=== PATIENT | female | born 1975 | race African-American/Black ===

== ENCOUNTER 2016-09-08 14:27 | Inpatient (IN) | payer OTHER ==
[~2016-09-08] VITALS: Ht 160 cm; Wt 162.4 kg
[~2016-09-08 14:27] MED LIST: ADVAIR 250/501 DISK IH; AZITHROMYCIN250 MG PO; CLONAZEPAM0.5 MG PO; DESYREL100 MG PO; DOXEPIN HCL25 MG PO; EFFEXOR XR150 MG PO; FERROUS SULFAT325 MG PO; GLUCOPHAGE XR750 MG PO; INDERAL20 MG PO; INVOKANA300 MG PO; KLONOPIN1 MG PO; KLOR-CON M1010 MEQ PO; LATUDA40 MG PO; LATUDA80 MG PO; LEVOTHYROXINE50 MCG PO; LISINOPRIL-HCT1 EAC3 PO; METFORMIN HCL500 M1 PO; METOPROLOL SUCC25 MG PO; NOVOLOG MI100 UNIT/4 SC; PRAZOSIN HCL1 MG PO; PRINZIDE 20-121 EACH PO; PROAIR HFA8.5 GM IH; ROZEREM8 MG PO; SINGULAIR10 MG PO; ZYRTEC10 M2 PO
[2016-09-08 15:21] LABS: HEMATOCRIT 41.3 % (36.0-46.0); MCH 27.8 PG (29.0-34.0); MCHC 32.2 G/DL (30.0-36.0); MCV 86.2 FL (83-99); MEAN PLAT.VOLUME 9.3 uM^3 (9.5-12.4); PLATELET COUNT 421 K/uL (156-360); RBC DIS.WIDTH-CV 13.6 % (11.8-14.6); RBC DIS.WIDTH-SD 42.5 % (39-53); RED BLOOD COUNT 4.79 M/uL (3.80-5.20); WHITE BLOOD COUNT 12.3 K/uL (4.1-10.2)
[2016-09-08 15:29] LABS: CHLORIDE 104 mEq/L (99-109); POTASSIUM 3.8 mEq/L (3.7-5.4); SODIUM 140 mEq/L (136-147)
[2016-09-08 15:30] LABS: GLUCOSE 94 mg/dL (70-99)
[2016-09-08 15:32] LABS: ANION GAP 10 MEQ/L (2-14)
[2016-09-08 15:34] LABS: GFR ESTIMATE (CALCULATED) 54 mL/min/; SERUM ETHYL ALCOHOL < 10 mg/dL
[2016-09-08 15:35] LABS: UREA NITROGEN (BUN) 10 mg/dL (9-23)
[2016-09-08 19:19] LABS: SALICYLATE < 5.0 MG/DL (15-30)
[2016-09-08 20:09] LABS: INTERNAL CONTROL VALID? YES
[2016-09-08 20:10] LABS: ADD MIUA? YES; BILIRUBIN NEGATIVE; BLOOD NEGATIVE; COLOR YELLOW ((YELLOW)); GLUCOSE (STRIP) >=500; KETONES 20; LEUKOCYTES NEGATIVE; NITRITE NEGATIVE; PROTEIN (STRIP) 100; SPECIFIC GRAVITY 1.035 (1.000-1.030); UROBILINOGEN 0.2 MG/DL (0.2-1.0)
[2016-09-08 20:15] LABS: BACTERIA NONE SEEN /HPF; EPITHELIAL CELLS RARE /HPF; MUCUS TRACE /LPF; RED BLOOD CELLS 0-5 /HPF (0-5); UCUL ADDED? NO; WHITE BLOOD CELLS 0-5 /HPF (0-5)
[2016-09-08 20:26] LABS: COCAINE NEGATIVE (150 ng/mL); PHENCYCLIDINE NEGATIVE (25 ng/mL); THC CANNABINOIDS NEGATIVE (50 ng/mL)
[2016-09-08 20:27] LABS: ADD MEDTOX COMMENT Y; AMPHETAMINE NEGATIVE (500 ng/mL); BARBITURATES NEGATIVE (200 ng/mL); BENZODIAZEPINES PRESUMPTIVE POSITIVE (150 ng/mL); INTERNAL CONTROLS VALID? YES; METHADONE NEGATIVE (200 ng/mL); METHAMPHETAMINE NEGATIVE (500 ng/mL); OPIATES (MORPHINE) NEGATIVE (100 ng/mL); OXYCODONE NEGATIVE (100 ng/mL); PROPOXYPHENE NEGATIVE (300 ng/mL); TRICYCLIC ANTIDEPRESSANTS NEGATIVE (300 ng/mL)
[2016-09-08 21:01] LABS: BENZODIAZEPINES, URINE SCREEN POSITIVE (200 ng/mL)
[2016-09-08] MEDS ORDERED: TOPROL XL100 MG PO (21:22)
[2016-09-08] MEDS ORDERED: DESYREL 150 MG150 MG PO (21:24)
[2016-09-08] MEDS ORDERED: ADVAIR 500/501 DISK IH (21:28)
[2016-09-08] MEDS ORDERED: ESZOPICLONE3 MG PO (21:32)
[2016-09-08] MEDS ORDERED: LORAZEPAM1 MG PO (21:32)
[2016-09-08] MEDS ORDERED: SPIRONOLACTONE25 MG PO (21:33)
[2016-09-08] MEDS ORDERED: VALSARTAN160 MG PO (21:34)
[2016-09-08] MEDS ORDERED: TRULICITY1.5 MG/0.5 SC (21:34)
[2016-09-08] MEDS ORDERED: VALSARTAN320 MG PO (21:35)
[2016-09-08] MEDS ORDERED: WELLBUTRIN SR200 MG PO (21:36)
[2016-09-08] MEDS ORDERED: PANTOPRAZOLE SO40 MG PO (21:36)
[2016-09-08] MEDS ORDERED: FLONASE ALLERG9.9 ML BOTH NARES (21:37)
[2016-09-08] MEDS ORDERED: HUMALOG100 UNIT/1 SC (21:46)
[2016-09-08] MEDS ORDERED: AZITHROMYCIN500 M1 PO (21:46)
[2016-09-08] MEDS ORDERED: INSULIN PUMP SCCONT (21:56)
[2016-09-08 22:37] VITALS: BP 188/113
[2016-09-08 22:41] VITALS: BP 188/116
[2016-09-09 00:54] VITALS: BP 202/99
[2016-09-09 06:16] LABS: POINT-OF-CARE METER ID UU13113830
[2016-09-09 07:49] VITALS: BP 182/86
[2016-09-09 11:57] LABS: POINT-OF-CARE METER ID UU13113830; POINT-OF-CARE USER ID HRSENV50
[2016-09-09 12:00] VITALS: BP 143/72
[2016-09-09 15:24] VITALS: BP 210/108
[2016-09-09 16:50] LABS: POINT-OF-CARE METER ID UU13113830
[2016-09-09 21:53] LABS: POINT-OF-CARE METER ID UU13113830
[2016-09-10 06:09] LABS: POINT-OF-CARE METER ID UU13113830; POINT-OF-CARE USER ID BHSSMG
[2016-09-10 07:37] VITALS: BP 197/104
[2016-09-10 10:52] VITALS: BP 200/112
[2016-09-10 12:00] LABS: POINT-OF-CARE METER ID UU13113830; POINT-OF-CARE USER ID BHSLRM
[2016-09-10 15:38] VITALS: BP 192/82
[2016-09-10 16:46] LABS: POINT-OF-CARE METER ID UU13113830; POINT-OF-CARE USER ID BHSMEW
[2016-09-10 21:27] LABS: POINT-OF-CARE METER ID UU13113830; POINT-OF-CARE USER ID BHSMEW
[2016-09-11 05:59] LABS: POINT-OF-CARE METER ID UU13113830
[2016-09-11 08:21] VITALS: BP 111/55
[2016-09-11 11:09] LABS: POINT-OF-CARE METER ID UU13113830
[2016-09-11 15:46] VITALS: BP 174/87
[2016-09-11 17:24] LABS: POINT-OF-CARE METER ID UU13113830
[2016-09-11 21:01] LABS: POINT-OF-CARE METER ID UU13113830; POINT-OF-CARE USER ID BHSMEW
[2016-09-12 06:21] LABS: POINT-OF-CARE METER ID UU13113830
[2016-09-12 07:34] VITALS: BP 172/81
[2016-09-12 11:47] LABS: POINT-OF-CARE METER ID UU13113830; POINT-OF-CARE USER ID BHSMLB
[2016-09-12 11:50] VITALS: BP 190/112
[2016-09-12 15:31] VITALS: BP 180/93
[2016-09-12 16:48] LABS: POINT-OF-CARE METER ID UU13113830; POINT-OF-CARE USER ID BHSSMG
[2016-09-12 21:23] LABS: POINT-OF-CARE METER ID UU13113830; POINT-OF-CARE USER ID BHSSMG
[2016-09-13 07:28] LABS: POINT-OF-CARE METER ID UU13113830
[2016-09-13 08:02] VITALS: BP 163/81
[2016-09-13 12:05] LABS: POINT-OF-CARE METER ID UU13113830; POINT-OF-CARE USER ID HRSENV50
[2016-09-13 16:26] VITALS: BP 226/114
[2016-09-13 16:39] LABS: POINT-OF-CARE METER ID UU13113830
[2016-09-13 21:07] LABS: POINT-OF-CARE METER ID UU13113830
[2016-09-14 06:08] LABS: POINT-OF-CARE METER ID UU13113830
[2016-09-14 07:40] VITALS: BP 172/87
[2016-09-14 11:59] LABS: POINT-OF-CARE METER ID UU13113830
[2016-09-14 15:24] VITALS: BP 189/121
[2016-09-14 17:09] LABS: POINT-OF-CARE METER ID UU13113830; POINT-OF-CARE USER ID BHSSMG
[2016-09-14 20:53] LABS: POINT-OF-CARE METER ID UU13113830; POINT-OF-CARE USER ID BHSSMG
[2016-09-14 23:30] VITALS: BP 181/73
[2016-09-15 06:18] LABS: POINT-OF-CARE METER ID UU13113830
[2016-09-15 08:00] VITALS: BP 178/77
[2016-09-15 12:12] LABS: POINT-OF-CARE METER ID UU13113830
[2016-09-15 16:53] LABS: POINT-OF-CARE METER ID UU13113830; POINT-OF-CARE USER ID BHSMEW
[2016-09-15 20:46] LABS: POINT-OF-CARE METER ID UU13113830
[2016-09-16 06:38] LABS: POINT-OF-CARE METER ID UU13113830
[2016-09-16 07:54] VITALS: BP 175/80
[2016-09-16] MEDS ORDERED: CLONIDINE HCL0.2 MG PO (10:03)
[2016-09-16] MEDS ORDERED: AMLODIPINE BESYL5 MG PO (10:03)
[2016-09-16] MEDS ORDERED: CITALOPRAM HBR10 MG PO (10:03)
[2016-09-16] MEDS ORDERED: APRESOLINE25 MG PO (10:03)
[2016-09-16] MEDS ORDERED: ARIPIPRAZOLE15 MG PO (10:03)
[2016-09-16 12:08] LABS: POINT-OF-CARE METER ID UU13113830
== END 2016-09-16 12:32 | disposition home or self-care (01) | DRG 885 ==
LOC: EME 14:27 → EDOF 20:56 → 1WEST 20:56
PROVIDERS: Emergency Medicine; Psychiatry & Neurology Psychiatry
DX: F33.2 Major depressive disorder, recurrent severe without psychotic features (principal); R45.851 Suicidal ideations; F60.3 Borderline personality disorder; E11.9 Type 2 diabetes mellitus without complications; I10 Essential (primary) hypertension; E03.9 Hypothyroidism, unspecified; J45.909 Unspecified asthma, uncomplicated; E66.9 Obesity, unspecified; Z68.44 Body mass index [BMI] 60.0-69.9, adult; Z91.5 Personal history of self-harm; Z79.84 Long term (current) use of oral hypoglycemic drugs; Z59.9 Problem related to housing and economic circumstances, unspecified
CPT/HCPCS: 80048; 81003; 82948; 84703; 84999; 85027; 90839; 93005; 94640 76; 97150 GO; 97165 GO; 99281; 99285; G0480; J1815; Q0177

== ENCOUNTER 2017-04-15 09:55 | Emergency (ER) | payer OTHER ==
[~2017-04-15] VITALS: Ht 160 cm; Wt 169.9 kg
[~2017-04-15 09:55] MED LIST changes: +ADVAIR 500/501 DISK IH; +AMLODIPINE BESYL5 MG PO; +APRESOLINE25 MG PO; +ARIPIPRAZOLE15 MG PO; +AZITHROMYCIN500 M1 PO; +CITALOPRAM HBR10 MG PO; +CLONIDINE HCL0.2 MG PO; +DESYREL 150 MG150 MG PO; +ESZOPICLONE3 MG PO; +FLONASE ALLERG9.9 ML BOTH NARES; +HUMALOG100 UNIT/1 SC; +INSULIN PUMP SCCONT; +LORAZEPAM1 MG PO; +PANTOPRAZOLE SO40 MG PO; +SPIRONOLACTONE25 MG PO; +TOPROL XL100 MG PO; +TRULICITY1.5 MG/0.5 SC; +VALSARTAN160 MG PO; +VALSARTAN320 MG PO; +WELLBUTRIN SR200 MG PO
[2017-04-15 12:34] LABS: BASOPHIL (%) 0.4 % (0-1); BASOPHIL COUNT 0.1 K/uL (0-0.1); EOSINOPHIL (%) 3.2 % (0-5); EOSINOPHIL COUNT 0.4 K/uL (0-0.3); HEMATOCRIT 40.5 % (36.0-46.0); HEMOGLOBIN 13.2 G/DL (11.9-15.5); IMMATURE GRANULOCYTE (%) 0.2 % (0.0-0.7); LYMPHOCYTE (%) 20.9 % (15-42); LYMPHOCYTE COUNT 2.5 K/uL (1.0-2.8); MCH 29.2 PG (29.0-34.0); MCHC 32.6 G/DL (30.0-36.0); MCV 89.6 FL (83-99); MONOCYTE (%) 3.8 % (3-12); MONOCYTE COUNT 0.5 K/uL (0-0.8); NEUTROPHIL (%) 71.5 % (45-76); NEUTROPHIL COUNT 8.6 K/uL (1.8-6.4); PLATELET COUNT 350 K/uL (156-360); RBC DIS.WIDTH-CV 13.2 % (11.8-14.6); RBC DIS.WIDTH-SD 42.6 % (39-53); RED BLOOD COUNT 4.52 M/uL (3.80-5.20); WHITE BLOOD COUNT 12.1 K/uL (4.1-10.2)
[2017-04-15 12:41] LABS: CHLORIDE 104 mEq/L (99-109); POTASSIUM 4.1 mEq/L (3.7-5.4); SODIUM 139 mEq/L (136-147)
[2017-04-15 12:43] LABS: GLUCOSE 110 mg/dL (70-99)
[2017-04-15 12:47] LABS: CREATININE 1.3 mg/dL (0.6-1.3); GFR ESTIMATE (CALCULATED) 59 mL/min/
[2017-04-15 12:48] LABS: UREA NITROGEN (BUN) 14 mg/dL (9-23)
[2017-04-15 13:08] VITALS: BP 169/94
== END 2017-04-15 14:32 | disposition home or self-care (01) ==
LOC: EME 09:55
DX: I10 Essential (primary) hypertension (principal); E03.9 Hypothyroidism, unspecified; J45.909 Unspecified asthma, uncomplicated; Z79.84 Long term (current) use of oral hypoglycemic drugs; E66.01 Morbid (severe) obesity due to excess calories; Z68.44 Body mass index [BMI] 60.0-69.9, adult
CPT/HCPCS: 80048; 85025

== ENCOUNTER 2017-10-15 09:17 | Emergency (ER) | payer OTHER ==
[~2017-10-15] VITALS: Ht 160 cm; Wt 169.8 kg
[2017-10-15 09:57] LABS: HEMATOCRIT 36.3 % (36.0-46.0); HEMOGLOBIN 11.9 G/DL (11.9-15.5); MCH 28.3 PG (29.0-34.0); MCHC 32.8 G/DL (30.0-36.0); MCV 86.4 FL (83-99); PLATELET COUNT 347 K/uL (156-360); RBC DIS.WIDTH-CV 13.2 % (11.8-14.6); RBC DIS.WIDTH-SD 41.1 % (39-53); WHITE BLOOD COUNT 9.5 K/uL (4.1-10.2)
[2017-10-15 10:10] LABS: CHLORIDE 104 mEq/L (99-109); POTASSIUM 3.3 mEq/L (3.7-5.4); SODIUM 141 mEq/L (136-147)
[2017-10-15 10:12] LABS: GLUCOSE 182 mg/dL (70-99)
[2017-10-15 10:16] LABS: CREATININE 1.2 mg/dL (0.6-1.3); GFR ESTIMATE (CALCULATED) > 59 mL/min/; UREA NITROGEN (BUN) 10 mg/dL (9-23)
[2017-10-15 10:18] LABS: TROP-I INTERPRETATION NEGATIVE; TROPONIN-I < 0.01 ng/mL (0.0-0.30)
[2017-10-15 13:32] LABS: BILIRUBIN NEGATIVE; BLOOD LARGE; COLOR STRAW ((YELLOW)); GLUCOSE (STRIP) >=500; KETONES NEGATIVE; LEUKOCYTES NEGATIVE; NITRITE NEGATIVE; PROTEIN (STRIP) 30; SPECIFIC GRAVITY 1.023 (1.000-1.030); UROBILINOGEN 0.2 MG/DL (0.2-1.0)
[2017-10-15 13:33] LABS: APPEARANCE SL.HAZY ((CLEAR))
[2017-10-15 13:38] LABS: TROP-I INTERPRETATION NEGATIVE; TROPONIN-I < 0.01 ng/mL (0.0-0.30)
[2017-10-15 13:56] LABS: BACTERIA RARE /HPF; EPITHELIAL CELLS RARE /HPF; MUCUS NONE SEEN /LPF; RED BLOOD CELLS TNTC /HPF (0-5); UCUL ADDED? YES; WHITE BLOOD CELLS 0-5 /HPF (0-5)
[2017-10-15 17:12] VITALS: BP 157/97
== END 2017-10-15 17:13 | disposition home or self-care (01) ==
LOC: EME 09:17 → ENRESERV 16:56 → CANRESERV 16:56 → EME 17:10 → EDOF 17:10
PROVIDERS: Nurse Practitioner Family
DX: R07.89 Other chest pain (principal); I10 Essential (primary) hypertension; E11.9 Type 2 diabetes mellitus without complications; Z98.890 Other specified postprocedural states; J45.909 Unspecified asthma, uncomplicated; E03.9 Hypothyroidism, unspecified; F32.9 Major depressive disorder, single episode, unspecified; F31.9 Bipolar disorder, unspecified; F41.9 Anxiety disorder, unspecified; Z79.84 Long term (current) use of oral hypoglycemic drugs
CPT/HCPCS: 71046; 71275; 80048; 81003; 84484; 85027; 87086; 93005; 99281; 99285; J3010; J7030